=== PATIENT | male | born 1955 | race Caucasian/White ===

== ENCOUNTER 2017-08-22 14:17 | Emergency (ER) | payer OTHER ==
[~2017-08-22] VITALS: Ht 175.3 cm; Wt 78.0 kg
[~2017-08-22 14:17] MED LIST changes: -ASPI81TA94 PO
--- NOTE | 2017-08-22 14:25 | ER Report ---
History and Physical Time Seen By MD: 14:23 HPI/ROS CHIEF COMPLAINT: Shortness of breath HISTORY OF PRESENT ILLNESS: 62-year-old male patient presents to emergency room with complaints shortness of breath. Patient states it started approximately 10: 00 this morning. Patient states he is not been doing well with his breathing for the past 2 months. States that he today is gotten worse. Patient does have a history of blood clots. He is noticed these had some pain for last couple days behind his right leg as well as in his right medial thigh. He states that he is also having some chest pain. He he denies any nausea, vomiting or diarrhea. Patient states he does have some discomfort that radiates down the left arm. He has not taken any medication for this. He did take a baby aspirin this morning. REVIEW OF SYSTEMS: Respiratory: As noted above. Cardiovascular: As noted above. Gastrointestinal: No vomiting, no abdominal pain. Musculoskeletal: No back pain. Allergies: Coded Allergies: No Known Allergies (Verified Allergy, Mild, 08/22/17) Home Meds Reported Medications Aspirin (ASPIRIN) 81 Mg Tab.chew, 81 MG PO QDAY, TAB.CHEW 08/22/17 Norwood-3 Fatty Acids (OMEGA-3) 100 Mg Tab.chew, 350 MG PO BID, TAB.CHEW 03/24/17 Cholecalciferol (Vitamin D3) (VITAMIN D3) 1,000 Unit Tablet, 1000 UNIT PO DAILY , TAB 03/24/17 Gluc/Ronnell-Msm#1/C/Pardeep/Lawson/Bor (OSTEO BI-FLEX CAPLET) 1 Each Tablet, 1 EACH PO DAILY 03/24/17 Ubidecarenone (COQ-10) 100 Mg Capsule, 100 MG PO BID, CAPSULE 03/24/17 Discontinued Reported Medications Prasterone (Dhea) (DHEA) 50 Mg Capsule, 50 MG PO BID, CAPSULE 03/24/17 Jeremy Extract (JEREMY) 500 Mg Capsule, 500 MG PO BID, CAPSULE 03/24/17 Pregabalin (LYRICA) 75 Mg Capsule, 75 MG PO BID, CAPSULE 03/24/17 Tramadol Hcl (TRAMADOL HCL) 100 Mg Tab.er.24h, 100 MG PO TID, TAB 03/24/17 Hydrocodone Bit/Acetaminophen (HYDROCODON-ACETAMINOPHEN 5-325) 1 Each Tablet, 10 -325 EACH PO TID, TAB 03/24/17 Discontinued Scripts Ketorolac Tromethamine (KETOROLAC TROMETHAMINE) 10 Mg Tab, 10 MG PO Q6H, #8 TAB Prov:JAMIL CULP MD 03/25/17 Past Medical/Surgical History Patient has a past medical history of obstructive sleep apnea, asthma, pneumonia , pulmonary emboli, reflux, arthritis, fractures, back pain, atopic dermatitis, alcohol use. Patient has surgical history of tonsillectomy, back surgery, leg surgery, knee surgery, colonoscopy, hernia repair. Reviewed Nurses Notes: Yes Hx Smoking: No (CHEWS 1 BAG EVERY 2 DAYS, SINCE AGE 52) Smoking Status: Never Smoker Exposure to Second Hand Smoke?: Yes Hx Alcohol Use: Yes Constitutional Vital Sign - Last 24 Hours 08/22/17 08/22/17 08/22/17 08/22/17 14:23 14:30 14:47 14:48 Temp 97.4 Pulse 128 123 Resp 22 57 B/P (MAP) 148/108 97/81 (86) Pulse Ox 81 95 O2 Delivery Room Air O2 Flow Rate 15.0 08/22/17 08/22/17 08/22/17 08/22/17 15:00 15:41 15:47 15:52 Pulse 117 118 Resp 17 24 B/P (MAP) 103/90 (94) 103/82 (89) Pulse Ox 97 95 08/22/17 08/22/17 15:57 16:30 Pulse 116 Resp 15 B/P (MAP) 112/93 (99) Pulse Ox 95 Intake and Output 08/22/17 08/22/17 08/23/17 15:01 23:01 07:01 Intake Total 1012 ml Balance 1012 ml Physical Exam General Appearance: The patient is alert, has no immediate need for airway protection and no current signs of toxicity. Respiratory: Chest is non tender, lungs are clear to auscultation. Cardiac: regular rate and rhythm Gastrointestinal: Abdomen is soft and non tender, no masses, bowel sounds normal. Musculoskeletal: Neck: Neck is supple and non tender. Extremities have full range of motion and are non tender. Skin: No rashes or lesions. DIFFERENTIAL DIAGNOSIS: After history and physical exam differential diagnosis was considered for shortness of breath including but not limited to pulmonary infectious process, COPD, asthma, pulmonary embolus and congestive heart failure. Medical Decision Making Data Points Result Diagram: 08/22/17 1430 08/22/17 1430 Laboratory Hematology Test 08/22/17 14:30 Red Blood Count 5.58 M/uL (4.00-5.60) Mean Corpuscular Volume 92.6 fL (80.0-96.0) Mean Corpuscular Hemoglobin 31.4 pg (26.0-33.0) Mean Corpuscular Hemoglobin Concent 33.9 g/dL (32.0-36.0) Red Cell Distribution Width 13.0 % (11.5-14.5) Mean Platelet Volume 7.4 fL (7.2-11.1) Neutrophils (%) (Auto) 68.3 % (39.4-72.5) Lymphocytes (%) (Auto) 18.9 % (17.6-49.6) Monocytes (%) (Auto) 11.0 % (4.1-12.4) Eosinophils (%) (Auto) 1.3 % (0.4-6.7) Basophils (%) (Auto) 0.5 % (0.3-1.4) Nucleated RBC Relative Count (auto) 0.0 /100WBC Neutrophils # (Auto) 6.7 K/uL (2.0-7.4) Lymphocytes # (Auto) 1.8 K/uL (1.3-3.6) Monocytes # (Auto) 1.1 K/uL (0.3-1.0) Eosinophils # (Auto) 0.1 K/uL (0.0-0.5) Basophils # (Auto) 0.1 K/uL (0.0-0.1) Nucleated RBC Absolute Count (auto) 0.00 K/uL Prothrombin Time 13.9 seconds (12.0-14.4) Prothromb Time International Ratio 1.07 Activated Partial Thromboplast Time 31 seconds (23-35) D-Dimer Quantitative (PE/DVT) > 20.00 ug/ml (0-0.50) Sodium Level 136 mmol/L (137-145) Potassium Level 4.2 mmol/L (3.5-5.0) Chloride Level 101 mmol/L (98-107) Carbon Dioxide Level 23 mmol/L (22-30) Blood Urea Nitrogen 13 mg/dl (9-21) Creatinine 1.20 mg/dl (0.66-1.25) Glomerular Filtration Rate Calc > 60.0 Random Glucose 113 mg/dl (75-110) Calcium Level 9.7 mg/dl (8.4-10.2) Total Bilirubin 1.1 mg/dl (0.2-1.3) Aspartate Amino Transf (AST/SGOT) 40 U/L (0-35) Alanine Aminotransferase (ALT/SGPT) 33 U/L (0-56) Alkaline Phosphatase 121 U/L (0-126) Troponin I 1.640 ng/ml B-Type Natriuretic Peptide 44 pg/ml (0-100) Total Protein 8.7 gm/dl (6.3-8.2) Albumin 4.0 g/dl (3.5-5.0) Chemistry Test 08/22/17 14:30 White Blood Count 9.8 k/uL (4.5-11.0) Red Blood Count 5.58 M/uL (4.00-5.60) Hemoglobin 17.5 g/dL (14.0-18.0) Hematocrit 51.7 % (42.0-52.0) Mean Corpuscular Volume 92.6 fL (80.0-96.0) Mean Corpuscular Hemoglobin 31.4 pg (26.0-33.0) Mean Corpuscular Hemoglobin Concent 33.9 g/dL (32.0-36.0) Red Cell Distribution Width 13.0 % (11.5-14.5) Platelet Count 368 K/uL (150-450) Mean Platelet Volume 7.4 fL (7.2-11.1) Neutrophils (%) (Auto) 68.3 % (39.4-72.5) Lymphocytes (%) (Auto) 18.9 % (17.6-49.6) Monocytes (%) (Auto) 11.0 % (4.1-12.4) Eosinophils (%) (Auto) 1.3 % (0.4-6.7) Basophils (%) (Auto) 0.5 % (0.3-1.4) Nucleated RBC Relative Count (auto) 0.0 /100WBC Neutrophils # (Auto) 6.7 K/uL (2.0-7.4) Lymphocytes # (Auto) 1.8 K/uL (1.3-3.6) Monocytes # (Auto) 1.1 K/uL (0.3-1.0) Eosinophils # (Auto) 0.1 K/uL (0.0-0.5) Basophils # (Auto) 0.1 K/uL (0.0-0.1) Nucleated RBC Absolute Count (auto) 0.00 K/uL Prothrombin Time 13.9 seconds (12.0-14.4) Prothromb Time International Ratio 1.07 Activated Partial Thromboplast Time 31 seconds (23-35) D-Dimer Quantitative (PE/DVT) > 20.00 ug/ml (0-0.50) Glomerular Filtration Rate Calc > 60.0 Calcium Level 9.7 mg/dl (8.4-10.2) Total Bilirubin 1.1 mg/dl (0.2-1.3) Aspartate Amino Transf (AST/SGOT) 40 U/L (0-35) Alanine Aminotransferase (ALT/SGPT) 33 U/L (0-56) Alkaline Phosphatase 121 U/L (0-126) Troponin I 1.640 ng/ml B-Type Natriuretic Peptide 44 pg/ml (0-100) Total Protein 8.7 gm/dl (6.3-8.2) Albumin 4.0 g/dl (3.5-5.0) Coagulation Test 08/22/17 14:30 Prothrombin Time 13.9 seconds Prothromb Time International Ratio 1.07 Activated Partial Thromboplast Time 31 seconds D-Dimer Quantitative (PE/DVT) > 20.00 ug/ml EKG/Imaging EKG Interpretation 12 lead EKG: Rhythm: Sinus tachycardia with ventricular rate of 123 bpm Sebastian: Right axis deviation QRS: normal ST segments: T wave abnormality Imaging CT angiogram chest with contrast Indication: Short of breath. Comparison: None available. Technique: Axial CT images are obtained through the chest after administration of 100 mL Isovue 370 IV contrast. Reformatted coronal and sagittal images were reviewed as well as coronal MIP images. One of the following dose optimization techniques was utilized in the performance of this exam: automated exposure control; adjustment of the mA and/ or kV according to the patient's size; or use of an iterative reconstruction technique. Specific details can be referenced in the facility's radiology CT exam operational policy. FINDINGS: There is significant bilateral pulmonary emboli's starting from the distal right and left main pulmonary artery and extending into the branches of the right upper, middle and lower lobe pulmonary arteries and the left lingula and lower lobe pulmonary arteries. These are in the segmental and subsegmental distribution. The heart is normal size without pericardial effusion. The right ventricle measures 6 cm and the left ventricle measures 2.4 cm. Aorta shows no aneurysm or dissection. The mediastinum and hilar show no enlarged lymph nodes or abnormal density. Lungs show no consolidation, pleural effusion or pneumothorax. There is a posterior pleural-based 6 mm nodule in the left lower lobe on image #58. No other discrete nodules or focal interstitial opacities. Airways are clear. Bony structures show no acute fracture or discrete lesions. Mild degenerative changes spine. Chest wall shows no enlarged axillary lymph nodes or masses. Limited views of the upper abdomen are unremarkable. IMPRESSION: 1. Significant bilateral pulmonary emboli extending from the distal main left and right pulmonary arteries into the segmental and subsegmental branches diffusely. There appears to be right heart strain present. 2. Lungs show no focal infiltrate. 3. 6 mm left lower lobe pleural-based nodule. This too small characterize. Suggest follow-up per Fleischner guidelines described below. I called report to KEVIN MEJIA at 08/22/2017 3:53 PM. FLEISCHNER SOCIETY FOLLOW-UP GUIDELINES FOR NEWLY DETECTED INCIDENTAL NODULES IN PERSONS 35 YEARS OF AGE OR OLDER. *THESE RECOMMENDATIONS DO NOT APPLY TO LUNG CANCER SCREENING, PATIENTS WITH IMMUNOSUPPRESSION , OR PATIENTS WITH KNOWN PRIMARY MALIGNANCY. SOLITARY SOLID NODULES If nodule size is less than 6 mm: Low risk patient - no follow up needed High risk patient - Optional CT at 12 months. If nodule size is 6-8 mm: Low risk patient - follow up CT at 6-12 months, then consider CT at 18-24 months if no change. High risk patient - follow up CT at 6-12 months, then CT at 18-24 months if no change. If nodule size is greater than 8 mm: Low risk patient - Consider CT at 3, 9 months, and 24 months; or PET/CT, or tissue sampling, or a combination thereof. High risk patient - Consider CT at 3, 9 months, and 24 months; or PET/CT, or tissue sampling, or a combination thereof. LOW RISK PATIENT: Minimal or absent history of tobacco use and of other known risk factors. HIGH RISK PATIENT: Tobacco use, family history of lung cancer, upper pulmonary lobe location of nodule, presence of emphysema, pulmonary fibrosis, older age. Nathaniel H, Li DP, Itzel ROBINS, et al. Guidelines for Management of Incidental Pulmonary Nodules Detected on CT Images: From the Fleischner Society 2017. Radiology. Report Dictated By: Chay Antony at 08/22/2017 3:45 PM Report E-Signed By: Chay Antony at 08/22/2017 3:54 PM ED Course/Re-evaluation ED Course Patient was admitted to exam room, history and physical were obtained. Differential diagnoses were considered. On exam patient is working hard to breathe. He does have a room air sat of 84%, heart rate is 134. Patient was placed on oxygen, bruit the oxygen up to 93% with 10 L on oxygen mask. IV was started, CBC, CMP, troponin, EKG, d-dimer, PT and PTT were done. Patient had a normal white count, CMP was unremarkable. Troponin was elevated at 1.64. EKG showed a sinus tachycardia with right axis deviation, T-wave abnormality. As soon as I saw the troponin I did order the pony angiogram. He was my thought that it was likely heartstring that was causing the elevated troponin. I spoke with Dr. Valle, hospitals at [facility], and discussed the case. We decided to wait until we had the CT scan to make a plan. That was done and I reviewed the images. I was able to visualize large clot burden in the right and left pulmonary arteries. I did call and speak with Dr. Valle, hospitalist at [facility], who agreed to accept the patient for admission. We will go ahead and start the patient on a heparin drip here. We will also go ahead and fly the patient due to the significant clot burden. I discussed with patient who verbalized understanding and agreement. Decision to Disposition Date: Aug 22, 2017 Decision to Disposition Time: 15:56 Depart Departure Latest Vital Signs Vital Signs Date Time Temp Pulse Resp B/P (MAP) Pulse Ox O2 Delivery O2 Flow Rate FiO2 08/22/17 16:30 112/93 (99) 08/22/17 15:57 116 15 95 08/22/17 14:30 15.0 08/22/17 14:23 97.4 Room Air Impression: Primary Impression: Pulmonary emboli Additional Impression: Elevated troponin Condition: Condition Unchanged Disposition: XFER TO [facility] Problem Qualifiers Primary Impression: Pulmonary emboli Pulmonary embolism type: other Chronicity: acute Acute cor pulmonale presence: with acute cor pulmonale Qualified Codes: I26.09 - Other pulmonary embolism with acute cor pulmonale KEVIN MEJIA Aug 22, 2017 14:25
[2017-08-22] MEDS ORDERED: NS(*) 0.9% 1000 ML BAG 1,000 ML IV ONE (14:36)
[2017-08-22] MEDS ORDERED: ASPI81TA94 PO (14:37)
[2017-08-22] MEDS ORDERED: methylPREDNIS SUCC 125 MG/2ML IVP ONE (14:40)
[2017-08-22 14:44] LABS: PLATELET COUNT, AUTOMATED 368 K/uL (150-450)
--- NOTE | 2017-08-22 14:46 | EKG ---
FACILITY: [facility] - [place] PATIENT NAME: NERISSA TYLER : [id number] MR: [id number] V: [id number] EXAM DATE: ORDERING PHYSICIAN: KEVIN MEJIA TECHNOLOGIST: Khalif Hamilton Reason : Blood Pressure : / mmHG Vent. Rate : 123 BPM Atrial Rate : 123 BPM P-R Int : 146 ms QRS Dur : 084 ms QT Int : 324 ms P-R-T Axes : 067 118 -14 degrees QTc Int : 463 ms Sinus tachycardia Right axis deviation Abnormal ECG Artifact in multiple leads makes interpretation dfiicult - recommend repeat EKG Confirmed by TI HERNANDES ([id number]) on 08/23/2017 6:05:07 AM Referred By: Confirmed By:TI HERNANDES
[2017-08-22] MEDS ORDERED: NS 0.9% 50 ML VIAL 100 ML ONE (15:36)
[2017-08-22] MEDS ORDERED: IOPAMIDOL 76% 100 ML INFUS BTL 100 ML ONE (15:36)
[2017-08-22] MEDS ORDERED: HEPARIN* SOD/D5W 25000 U/500ML 500 ML IV ONE (15:38)
[2017-08-22] MEDS ORDERED: HEPARIN (PORC) 5000 UN/ML VIAL IVP ONE (15:40)
[2017-08-22 15:58] LABS: INR 1.07
--- NOTE | 2017-08-22 15:59 | RADIOLOGY IMAGING REPORT ---
FACILITY: [facility] - [place] PATIENT NAME: Tima Romero : 1955 MR: [id number] V: [id number] EXAM DATE: ORDERING PHYSICIAN: KEVIN MEJIA TECHNOLOGIST: Location: [facility] - [place] Patient: Tima Romero : 1955 Visit/Account:[id number] Date of Sevice: 08/22/2017 CT angiogram chest with contrast Indication: Short of breath. Comparison: None available. Technique: Axial CT images are obtained through the chest after administration of 100 mL Isovue 370 I V contrast. Reformatted coronal and sagittal images were reviewed as well as coronal MIP images. One of the following dose optimization techniques was utilized in the performance of this exam: auto mated exposure control; adjustment of the mA and/or kV according to the patient's size; or use of an iterative reconstruction technique. Specific details can be referenced in the facility's radiology C T exam operational policy. FINDINGS: There is significant bilateral pulmonary emboli's starting from the distal right and left main pulmon abdullahi artery and extending into the branches of the right upper, middle and lower lobe pulmonary arteri es and the left lingula and lower lobe pulmonary arteries. These are in the segmental and subsegmenta l distribution. The heart is normal size without pericardial effusion. The right ventricle measures 6 cm and the left ventricle measures 2.4 cm. Aorta shows no aneurysm or dissection. The mediastinum and hilar show no enlarged lymph nodes or abnormal density. Lungs show no consolidation, pleural effusion or pneumothorax. There is a posterior pleural-based 6 m m nodule in the left lower lobe on image #58. No other discrete nodules or focal interstitial opaciti es. Airways are clear. Bony structures show no acute fracture or discrete lesions. Mild degenerative changes spine. Chest wa ll shows no enlarged axillary lymph nodes or masses. Limited views of the upper abdomen are unremarkable. IMPRESSION: 1. Significant bilateral pulmonary emboli extending from the distal main left and right pulmonary art eries into the segmental and subsegmental branches diffusely. There appears to be right heart strain present. 2. Lungs show no focal infiltrate. 3. 6 mm left lower lobe pleural-based nodule. This too small characterize. Suggest follow-up per Fleanil tsang guidelines described below. I called report to KEVIN MEJIA at 08/22/2017 3:53 PM. FLEISCHNER SOCIETY FOLLOW-UP GUIDELINES FOR NEWLY DETECTED INCIDENTAL NODULES IN PERSONS 35 YEARS OF AGE OR OLDER. *THESE RECOMMENDATIONS DO NOT APPLY TO LUNG CANCER SCREENING, PATIENTS WITH IMMUNOSUPPRESSION , OR PA TIENTS WITH KNOWN PRIMARY MALIGNANCY. SOLITARY SOLID NODULES If nodule size is less than 6 mm: Low risk patient - no follow up needed High risk patient - Optional CT at 12 months. If nodule size is 6-8 mm: Low risk patient - follow up CT at 6-12 months, then consider CT at 18-24 months if no change. High risk patient - follow up CT at 6-12 months, then CT at 18-24 months if no change. If nodule size is greater than 8 mm: Low risk patient - Consider CT at 3, 9 months, and 24 months; or PET/CT, or tissue sampling, or a com bination thereof. High risk patient - Consider CT at 3, 9 months, and 24 months; or PET/CT, or tissue sampling, or a co mbination thereof. LOW RISK PATIENT: Minimal or absent history of tobacco use and of other known risk factors. HIGH RISK PATIENT: Tobacco use, family history of lung cancer, upper pulmonary lobe location of nodul e, presence of emphysema, pulmonary fibrosis, older age. Nathaniel H, Li DP, Harrisono JM, et al. Guidelines for Management of Incidental Pulmonary Nodules Dete cted on CT Images: From the Fleischner Society 2017. Radiology. Report Dictated By: Chay Antony at 08/22/2017 3:45 PM Report E-Signed By: Chay Antony at 08/22/2017 3:54 PM WSN:[id number]
[2017-08-22 16:30] VITALS: BP 112/93
[2017-08-22] MEDS ORDERED: LORazepam 2 MG/ML VIAL IVP ONE (16:30)
== END 2017-08-22 17:00 | disposition short-term general hospital (02) ==
LOC: ER 14:26
DX: I26.09 Other pulmonary embolism with acute cor pulmonale (principal); R79.89 Other specified abnormal findings of blood chemistry
CPT/HCPCS: 71275; 83880; 84484; 85025; 85379; 85610; 85730; 93005; 96361; 96365; 96375; 99285; J1644; J2060; J2930; J7030; J7050; Q9967; 82040; 82247; 82310; 82374; 82435; 82565; 82947; 84075; 84132; 84155; 84295; 84450; 84460; 84520

== ENCOUNTER → 2017-08-22 | Outpatient (REF) ==
[~2017-08-22] MED LIST: ASPI81TA94 PO; CHOL10005 PO; CLON-298 PO; DEXA6TAB5 PO; DIA5 PO; GLUC1TAB44 PO; HYDR-3629 PO; HYDR-385 PO; HYDR-6016 PO; IBUP800T37 PO; INDO50CA92 PO; INDO75CA PO; KET10 PO; MACA500C2 PO; OMEG100T3 PO; OMEP-153 PO; ORP100 PO; OXYC-869 PO; OXYC10TA67 PO; PANT40TA63 PO; PRAS50CA3 PO; PREG75CA60 PO; QUE25 PO; TRAM-420 PO; TRAM100T22 PO; UBID100C48 PO; VENL150C3 PO
== END ==
LOC: AMB 16:35
PROVIDERS: ATTEND Nurse Practitioner
DX: Z02.9 Encounter for administrative examinations, unspecified (principal)

== ENCOUNTER → 2018-02-09 | Outpatient (REF) | payer OTHER ==
[~2018-02-09] MED LIST changes: +ASPI81TA94 PO; -TRAM100T22 PO; +TRAM100T8 PO
== END ==
LOC: ZZSENDIN 12:00
PROVIDERS: ATTEND Urology
DX: C61 Malignant neoplasm of prostate (principal)
CPT/HCPCS: 88305; 88344

== ENCOUNTER 2018-02-18 13:46 | Outpatient (RCR) | payer OTHER ==
[~2018-02-18 13:46] MED LIST changes: -CLON-298 PO; +CLON-331 PO; +INDO-23 PO; -INDO50CA92 PO
[2018-02-18 14:02] LABS: PLATELET COUNT, AUTOMATED 350 K/uL (150-450)
[2018-02-23] MEDS ORDERED: IOPAMIDOL 76% 100 ML INFUS BTL 100 ML ONE (07:54)
--- NOTE | 2018-02-23 08:24 | RADIOLOGY IMAGING REPORT ---
FACILITY: [facility] PATIENT NAME: Tima Romero : 1955 MR: [id number] V: [id number] EXAM DATE: ORDERING PHYSICIAN: DOC WASHINGTON TECHNOLOGIST: Location: [facility] - [place] Patient: Tima Romero : 1955 Visit/Account:[id number] Date of Sevice: 02/23/2018 Chest 2 views: HISTORY: Prostate cancer, nonsmoker. Sports-induced asthma. COMPARISON: There are no prior chest x-rays available for comparison. Correlation made with chest CT 08/22/2017 FINDINGS: Frontal and lateral chest: Heart size is within normal limits. Central pulmonary arteries are prominent, similar to prior CT scan. Query symptoms of pulmonary hypertension. There is no infi ltrate or pleural effusion. Peripheral pulmonary vasculature appears normal. Minimal degenerative changes are present in the thoracic spine. IMPRESSION: Prominence of central pulmonary arteries, query symptoms of pulmonary hypertension. Ther e is no evidence of acute cardiopulmonary abnormality. Report Dictated By: Alecia Agrawal MD at 02/23/2018 8:14 AM Report E-Signed By: Alecia Agrawal MD at 02/23/2018 8:19 AM WSN:[id number]
--- NOTE | 2018-02-23 12:13 | RADIOLOGY IMAGING REPORT ---
FACILITY: [facility] - [place] PATIENT NAME: Tima Romero : 1955 MR: [id number] V: [id number] EXAM DATE: ORDERING PHYSICIAN: DOC WASHINGTON TECHNOLOGIST: Location: [facility] Patient: Tima Romero : 1955 Visit/Account:[id number] Date of Sevice: 02/23/2018 EXAMINATION: CT Abdomen W/O Contrast CT Abdomen W/ Contrast CT Pelvis W/O Contrast CT Pelvis W/ Contrast 02/23/2018 8:00 AM HISTORY: Prostate cancer TECHNIQUE: Spiral scans were obtained through the abdomen and pelvis before and during injection of nonionic iodinated intravenous contrast. Contrast: 80 mL of IV Isovue 370. One of the following dose optimization techniques was utilized in the performance of this exam: Autom ated exposure control; adjustment of the mA and/or kV according to the patient's size; or use of an i terative reconstruction technique. Specific details can be referenced in the facility's radiology C T exam operational policy. COMPARISON STUDIES: Scheduled bone scan today has not yet been completed. CT abdomen and pelvis 11/20/2013. FINDINGS: Liver / biliary: Indistinct hypoenhancing subcentimeter focus near the dome of the right lobe (image 25). This is harder to appreciate on the prior study without contrast but in retrospect I think pres ent and unchanged, presumably an incidental cyst or hemangioma no acute biliary finding. Pancreas: negative Spleen: negative Adrenal glands: negative Kidneys / retroperitoneum: negative Pelvic structures: Prostate is not substantially enlarged. No focal prostate mass evident by CT. Bladder contours are unremarkable. Bladder is mildly thick-walled but incompletely distended which may account for that. Bowel / peritoneum / mesenteries: negative Vessels: Aortoiliac atherosclerosis with tortuosity. No aneurysm. Indwelling IVC filter. No visual ized caval thrombus. Musculoskeletal / Body wall: Adjacent indeterminate small sclerotic foci within the left iliac bone. No clear bony metastatic pattern. Degenerative changes in the spine. Lymph node assessment: negative Lower chest: negative IMPRESSION: No definite metastatic disease in the abdomen or pelvis. Indeterminate small sclerotic areas in the left iliac bone. Bone scan is pending. Report Dictated By: Jose Manuel Zuniga MD at 02/23/2018 11:33 AM Report E-Signed By: Jose Manuel Zuniga MD at 02/23/2018 12:09 PM WSN:[email or web address]
--- NOTE | 2018-02-23 14:33 | RADIOLOGY IMAGING REPORT ---
FACILITY: [facility] PATIENT NAME: Tima Romero : 1955 MR: [id number] V: [id number] EXAM DATE: ORDERING PHYSICIAN: DOC WASHINGTON TECHNOLOGIST: Location: [facility] [place] Patient: Tima Romero : 1955 Visit/Account:[id number] Date of Sevice: 02/23/2018 Whole body bone scan: HISTORY: Prostate cancer. COMPARISON: There are no prior bone scan studies available for comparison. Correlation made with CT scan 02/23/2018. Correlation made with cervical spine films 08/23/2009. FINDINGS: Whole body bone scan was performed following the IV administration of 26.4 mCi of technetiu m 99m MDP. There is homogeneous uptake of activity in the skull, thoracic and lumbar spine. There i s mild increased activity overlying the anterior cervical spine inferiorly which may be secondary to degenerative disease. Sclerotic focus in the left iliac bone on CT scan does not have a bone scan correlate. There is homo geneous uptake of activity in the pelvis. There4 is no abnormal uptake in the ribs. Mild increased activity is present at the sternoclavicular joints bilaterally, likely degenerative. There is a focus of intense activity at the tip of the xip hoid process. A CT scan is noted that the tip of the xiphoid is prominent and oriented anteriorly an d this focus of activity may reflect this. There is mild increased activity in both shoulders, right wrist, both knees, feet and ankles and both first MTP joints, sites commonly associated with degener ative disease. IMPRESSION: 1. No bone scan findings to suggest bony metastatic disease. Sclerotic focus in the left iliac bone on CT scan does not have a bone scan correlate. 2. Activity in the tip of the xiphoid likely related to orientation of this structure. 3. Foci of increased activity at sites commonly associated with degenerative disease. Report Dictated By: Alecia Agrawal MD at 02/23/2018 2:15 PM Report E-Signed By: Alecia Agrawal MD at 02/23/2018 2:29 PM WSN:[email or web address]
== END 2018-02-23 18:00 | disposition home or self-care (01) ==
LOC: CT 13:46
PROVIDERS: ATTEND Urology
DX: C61 Malignant neoplasm of prostate (principal)
CPT/HCPCS: 36415; 71046; 74178; 78306; 82248; 85025; A9503; Q9967; 82040; 82247; 82310; 82374; 82435; 82565; 82947; 84075; 84132; 84155; 84295; 84450; 84460; 84520

== ENCOUNTER 2018-03-15 08:49 | Outpatient (RCR) | payer OTHER ==
[2018-03-16] MEDS ORDERED: RIVA20TA PO (10:06)
[2018-03-16] MEDS ORDERED: ALB18R INH (10:06)
== END 2018-04-15 09:57 | disposition home or self-care (01) ==
LOC: RAON 08:49
PROVIDERS: ATTEND Radiology Radiation Oncology
DX: C61 Malignant neoplasm of prostate (principal)
CPT/HCPCS: 99203

== ENCOUNTER 2018-07-12 10:27 | Outpatient (RCR) | payer OTHER ==
--- NOTE | 2018-05-02 16:06 | Oncology Progress Note ---
History of Present Illness Evaluation Evaluation Date: May 02, 2018 Evaluation Time: 15:00 Accompanied by Accompanied by: Gissel Last seen by : Marv 03/15/18 Chief Complaint Chief Complaint Prostate cancer, presenting with highest Clearwater score 3+4=7 in 3/12 cores and PSA of 9.0, status post biopsy Oncology History Oncology History 03/15/2018 Mr. Romero is a 63 year old gentleman who was noted to have a rising PSA, up to 9.0 on 01/03/2018. Patient had a prostate biopsy on 02/09/2018 under the direction of Dr. Cheng. Prostate volume was noted to be 41 cc. Pathology showed Rosa 3+4=7 disease in 30% of right lateral base core; Rosa 6 disease in 5% of right middle core and Clearwater 6 in 10% of the right apex core. Patient has previously discussed his treatment options with Dr. Cheng. He presents today for radiation oncology consultation. Patient's AUA is 2. No bowel issues Treatment Treatment Treatment Plan Options Management options for favorable intermediate risk prostate cancer and NCCN guidelines were reviewed. include active surveillance, prostatectomy, or external beam radiotherapy to the pelvis +/- prostate brachytherapy. Plan 4500 cGy plus 900 cGy HPI HPI Mr. Romero is a 63 year old gentleman who has Prostate Cancer Rosa 3+4=7 biopsy proven in 02/09/2018. Disease in 30% of right lateral base core; Clearwater 6 disease in 5% of right middle core and Clearwater 6 in 10% of the right apex core. Was noted to have a rising PSA, up to 9.0 on 01/03/2018.Patient has been under the direction of Dr. Cheng. Prostate volume was noted to be 41 cc. Patient has previously discussed his treatment options with Dr. Cheng. He presents to [facility] today accompany by his Ms. Chauhan, for radiation oncology follow up, patient was last seen By Dr. Fair Rad/Onc on March 15 2018, His [facility] was [facility]. He is AAOX4. Hemodynamically stable, afebrile and in no acute distress. He denies any cardiac type chest pain, no abdominal pain, no fevers at home, no night sweats, no chills, no spontaneous bleeding, no nausea vomiting diarrhea, no constipation, no dark stools .Oral intake appetite no weight loss. Reports cervical spine , lower back pain ongoing, no changes in bowel or bladder pattern, no PND, no dizziness, or headaches nor blurry vision. Keeps active and on the go. Patient's AUA is 2. Significant PMHx of; Pulmonary embolism; Chronic back and cervical pain. Living Conditions Lives with of 40 years , strong support system. 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 Family History; Mother 83 years old alive, history of bladder cancer, and NOn Hodkins Lymphoma, Father at 82 years old from liver cancer, Prostate cancer Brother one younger, no health issues besides a heart valve problem, chronic No children, to Gissel for 40years Alcohol History Drinks 5-6 beers/bud light per Day. Educated to cut back Chews tobacco daily. tobacco cessation education provided Recreational Drug History CBD oil drops for neck pain Hx Smoking: No (CHEWS 1 BAG EVERY 2 DAYS, SINCE AGE 52) Smoking Status: Never Smoker Exposure to Second Hand Smoke?: Yes Allergies & Medications Allergies: Coded Allergies: No Known Allergies (Verified Allergy, Mild, 08/22/17) Home Meds Reported Medications Albuterol Sulfate (VENTOLIN HFA) 18 Gm Inh, 1-2 PUFF INH 3-4XD PRN for WHEEZING, INH 03/16/18 Rivaroxaban 20 Mg (XARELTO 20 MG) 20 Mg Tablet, 20 MG PO DAILY, TAB 03/16/18 Aspirin (ASPIRIN) 81 Mg Tab.chew, 81 MG PO QDAY, TAB.CHEW 08/22/17 [place]-3 Fatty Acids (OMEGA-3) 100 Mg Tab.chew, 350 MG PO BID, TAB.CHEW 03/24/17 Cholecalciferol (Vitamin D3) (VITAMIN D3) 1,000 Unit Tablet, 1000 UNIT PO DAILY, TAB 03/24/17 Gluc/Ronnell-Msm#1/C/Pardeep/Lawson/Bor (OSTEO BI-FLEX CAPLET) 1 Each Tablet, 1 EACH PO DAILY 03/24/17 Ubidecarenone (COQ-10) 100 Mg Capsule, 100 MG PO BID, CAPSULE 03/24/17 Review of Systems Constitution: Denies Appetite/Weight Change, Denies Fever/Chills/Sweating, Denies Recent Infection, Denies Other HEENT: No EARS: Tinnitus, No NOSE: Nasal Discharge, No THROAT: Sore Throat, No EYES: Dipolpia, No EARS: Hearing Problems, No NOSE: Epistaxis, No THROAT: Mouth Ulcers, No EYES: Vision Change, No OTHER Respiratory: No Cough, No Expectoration, No Hemoptysis, No Shortness of Breath, No OTHER Cardiovascular: No Chest Pain, No Orthopnea, No Edema, No Palpitations, No OTHER Gastrointestinal: No Nausea, No Vomitting, No Diarrehea, No Constipation, No Heart Burn, No Swallowing Difficulties, No Abdominal Pain, No Other Gentiourinary: No Hematuria, No Dysuria, No Nocturia; Other (weak stream) Musculoskeletal: Other Hematological: No Bleeding, No Weakness, No Enlarged Lyph Nodes, No Bruising, No Fatigue, No Other Skin: No Skin Rash, No Lumps, No Erythema, No Dry Skin, No Moist Skin, No Other Psychiatric: No Anxiety, No Depression, No Other Vital Signs Vital Signs Temperature: Pulse: BP Systolic: BP Diastolic: Respiratory Rate: O2 SAT: O2 Delivery: Height (feet) Height (inches) Weight lb: 172 Weight oz: Weight Kg (Abilio): Pain: 5 ECOG-0 Physical Exam General: Looks Stable, Well Developed, Well Nourished HEENT: HEAD:Atraumatic; No EYES: Conjuctivitis, No EYES: Icterus, No MOUTH: Mucocitis, No MOUTH: Oral Thrush, No SINUS: Tenderness to Palpation, No Other Neck: Supple; No Cervical Lymphadenopathy, No Subclavicular Lymphadopathy, No Thyromegaly, No Other Lungs: Clear to Auscultation Heart: Regular Rate and Rhythm; No Gallops, No Murmurs, No Clicks, No Rubs, No Other Abdomen: Soft and Nontender; No Hepatosplenomegaly, No Masses, No Other Extremities: No Cyanosis, No Clubbing, No Edema, No Other Lymphatics: No Peripheral Lymphadenopathy, No Other Psychiatric: Mood appears normal, Affect appears normal Skin: No Skin Rashes, No Bruising, No Purpura, No Moist Desquamation, No Dry Desquamation, No Errythema, No Mild Errythema, No Moderate Errythema, No Severe Errythema, No Induration, No Other Breast: No Masses Assessment and Plan Assessment and Plan Mr. Romero is a 63 year old gentleman who has Prostate Cancer Clearwater 3+4=7 b iopsy proven in 02/09/2018. Disease in 30% of right lateral base core; Clearwater 6 disease in 5% of right middle core and Rosa 6 in 10% of the right apex core. Was noted to have a rising PSA, up to 9.0 on 01/03/2018.Patient has been under the direction of Dr. Cheng. Prostate volume was noted to be 41 cc. Patient has previously discussed his treatment options with Dr. Cheng. He presents today accompany by his Ms. Chauhan, for radiation oncology follow up, patient was last seen By Dr. Fair Rad/Onc on March 15 2018, His treatment was delayed due [facility]. He is AAOX4. Hemodynamically stable, afebrile and in no acute distress. He reports urine weak stream, denies leaking, no nocturia, no waking up at night to void, no night sweats, reports increase sensitivity to cold, he informs me his TSH is being checked at the OR, he also expressed preferring to get his labs drawn here at [facility] whenever possible. I informed him we could arrange that, patient and had additional questions for me, I believe that I answered them to the best of my knowledge. [facility]. 1. Prostate Cancer Rosa 3+4=7 biopsy proven in 02/09/2018. Disease in 30% of right lateral base core;SIM CT was done today 05/02/18 2. History of bilateral pulmonary embolism in 08/2017. on xarelto 20mg PO daily 3. IVC filter placement in after B/L PE.He is been followed by [place] and sewing pattern layout technician Dr. Luna at the OR. CHRONIC - Pain: Chronic, Cervical spine Pain and Lower back pain. He reports having suffered from physical work, Herniated disc. Plan is is to have 4cervical vertebra fused at the OR. Recently started on Hydrocodone 5mg Po BID, he also uses CBD oil PRN. - Tobacco (chewing) daily - Alcohol consumption- 5-6 [place] light beers per day - Hands and feet cold sensitivity. THS requested Plan - Review colonoscopy, prior initiate external beam XRT followed by brachytherapy. RN to request Colonoscopy from OR - Discuss Final treatment plan with Dr. Albert. - Bowel regimen Ppfx Rx and teaching provided today to and patient. Instructed to order picker OTC stool softeners and Imodium and use PRN. - Patient Instructed to decrease alcohol intake, patient reports drinking 5-6 beers er day as it produces an analgesic effects for his back and neck pain. He is also taking Hydrocodone 5mg Poo BID for the last week or so, this is helping. - Increase Physical activity and hydration, avoid caffeine, or stimulants after 6pm. - Will discuss with Dr. Albert in terms of approach with anticoagulation during seed implant - TSH and labs record to be requested from the OR - Education, patient and instructed to go to ER immediately and, or call Clinic if any Shortness of Breath, Temp >/=100.4, fevers, chills, cardiac type chest pain, bleeding, excessive bruising, headaches, blurry vision, dizziness, abdominal pain, difficulty swallowing, and pain unrelieved by medication, skin rashes, oozing wounds. TIME SPENT: 30 minutes 25 > minutes includes but not limited to discussion, counselling and co-ordination~ of care. Discussion with other health care providers, record review, review of lab work, diagnostic tests. Plan discussed extensively with patient. All the questions answered today. Thank you for the opportunity to be involved in the care of Tima Prater. Billing Level: Return visit 4 CC Copies to: OCHOA ALBERT MD ; VINAYAK LACKEY, ONC May 02, 2018 16:06
[2018-05-25 11:21] VITALS: BP 110/80
[2018-06-13 11:10] LABS: PLATELET COUNT, AUTOMATED 198 K/uL (150-450)
[~2018-07-12 10:27] MED LIST changes: +ALB18R INH; +ASPI-1471 PO; +CLOT15CR62 TP; +FLUC200T52 PO; +LEUPROLIDE ACETATE 45 MG SYRINGEKIT SC ONE; +METH4TAB66 PO; +RIVA20TA PO
[2018-07-12 10:33] VITALS: BP 101/76
== END 2018-07-28 ==
LOC: SPU 10:27
PROVIDERS: ATTEND Radiology Radiation Oncology
DX: Z51.0 Encounter for antineoplastic radiation therapy (principal); C61 Malignant neoplasm of prostate
CPT/HCPCS: 36415; 77280; 77290; 77295; 77300; 77301; 77334; 77336; 77338; 77385; 82040; 82247; 82310; 82374; 82435; 82565; 82947; 84075; 84132; 84153; 84155; 84295; 84403; 84450; 84460; 84520; 85025; 99212

== ENCOUNTER 2018-08-01 10:29 | Outpatient (RCR) | payer OTHER ==
[~2018-08-01 10:29] MED LIST changes: -LEUPROLIDE ACETATE 45 MG SYRINGEKIT SC ONE
== END 2018-08-01 16:17 | disposition home or self-care (01) ==
LOC: SPU 10:29
PROVIDERS: ATTEND Radiology Radiation Oncology
DX: Z51.0 Encounter for antineoplastic radiation therapy (principal); C61 Malignant neoplasm of prostate

== ENCOUNTER 2018-09-27 11:55 | Outpatient (RCR) | payer OTHER ==
[2018-09-20 10:57] VITALS: BP 121/84
[2018-09-27] MEDS ORDERED: TRAM100T8 PO (12:28)
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
== END 2018-10-03 11:49 | disposition home or self-care (01) ==
LOC: RAON 11:55
PROVIDERS: ATTEND Radiology Radiation Oncology
DX: Z51.0 Encounter for antineoplastic radiation therapy (principal); C61 Malignant neoplasm of prostate
CPT/HCPCS: 36415; 84153; 99212

== ENCOUNTER → 2018-11-03 | Outpatient (CLI) | payer OTHER | LOC: RESP 20:51 | PROVIDERS: ATTEND Family Medicine | DX: G47.33 Obstructive sleep apnea (adult) (pediatric) (principal); G47.37 Central sleep apnea in conditions classified elsewhere ==

== ENCOUNTER 2019-01-16 09:51 | Emergency (ER) | payer OTHER ==
--- NOTE | 2019-01-16 10:05 | ER Report ---
History and Physical Time Seen By MD: 10:04 Hx. of Stated Complaint: patient was running this morning and felt a pop in his left hip. patient is able to walk but reports pain HPI/ROS Was running, heard pop in proximal left hamstring at the buttocks. Then fell onto right knee. No head trauma. No other trauma. No with pain in left posterior proximal thigh at the buttocks region. Has limited gait, but able to ambulate with pain. On Xarelto for previous PE. Remainder of the 14 system rev: Yes Allergies: Coded Allergies: No Known Allergies (Verified Allergy, Mild, 08/22/17) Home Meds Reported Medications Tramadol Hcl (TRAMADOL HCL) 100 Mg Tab.er.24h, 100 MG PO QDAY, TAB 09/27/18 Methylprednisolone (METHYLPREDNISOLONE) 4 Mg Tab.ds.pk, 4 MG PO DIRECTED, TAB 05/20/18 Fluconazole (DIFLUCAN) 200 Mg Tablet, 200 MG PO QDAY for 14 days 05/20/18 Hydrocodone Bit/Acetaminophen (HYDROCODON-ACETAMINOPHEN 5-325) 1 Each Tablet, 1 EACH PO BID PRN for PAIN, TAB 05/09/18 Albuterol Sulfate (VENTOLIN HFA) 18 Gm Inh, 1-2 PUFF INH 3-4XD PRN for WHEEZING, INH 03/16/18 Rivaroxaban 20 Mg (XARELTO 20 MG) 20 Mg Tablet, 20 MG PO DAILY, TAB 03/16/18 [place]-3 Fatty Acids (OMEGA-3) 100 Mg Tab.chew, 350 MG PO BID, TAB.CHEW 03/24/17 Cholecalciferol (Vitamin D3) (VITAMIN D3) 1,000 Unit Tablet, 1000 UNIT PO DAILY, TAB 03/24/17 Gluc/Ronnell-Msm#1/C/Pardeep/Lawson/Bor (OSTEO BI-FLEX CAPLET) 1 Each Tablet, 1 EACH PO DAILY 03/24/17 Ubidecarenone (COQ-10) 100 Mg Capsule, 100 MG PO BID, CAPSULE 03/24/17 Reviewed Nurses Notes: Yes Old Medical Records Reviewed: Yes Hx Smoking: No (CHEWS 1 BAG EVERY 2 DAYS, SINCE AGE 52) Smoking Status: Never Smoker Exposure to Second Hand Smoke?: Yes Hx Substance Use Disorder: No Hx Alcohol Use: Yes Constitutional Vital Sign - Last 24 Hours 01/16/19 01/16/19 01/16/19 01/16/19 09:51 09:54 09:56 10:21 Temp 97.9 Pulse ??? 91 99 Resp 20 B/P (MAP) 113/85 (94) 113/85 Pulse Ox 91 88 O2 Delivery Room Air 01/16/19 01/16/19 01/16/19 01/16/19 10:58 11:21 13:00 13:30 Pulse 74 70 64 B/P (MAP) 103/76 (85) Pulse Ox 90 91 92 01/16/19 01/16/19 01/16/19 14:00 14:30 14:43 Pulse 76 78 B/P (MAP) 103/85 (91) Pulse Ox 91 92 Physical Exam General Appearance: The patient is alert, has no immediate need for airway p rotection and no current signs of toxicity. Head NCAT Eyes: Pupils equal and round no injection. Respiratory: Chest is non tender, lungs are clear to auscultation. Cardiac: regular rate and rhythm Gastrointestinal: Abdomen is soft and non tender, no masses, bowel sounds normal. Neck: Neck is supple and non tender. Extremities: LEFT LEG: limited straight leg raise, limited leg raise while knee in flexion and pt. in supine position. TTP at the insertion site of the left hamstring tendon [Skin:] [No rashes or lesions.] [ ] [DIFFERENTIAL DIAGNOSIS: After history and physical exam differential diagnosis was considered for] [ ] Medical Decision Making ED Course/Re-evaluation ED Course Unable to perform MSK US, b/c staff not trained. MRI machine at [facility] can not be done secondary to pt. with IVC filter. Patient states he has had multiple MRI's at other facilities, however. Dr. Brandon suggested CT to evaluet for complete tendon rupture. CT equivocal for partial vs. complete tendon rupture. ED staff called [facility], and scheduled the pt. for an appointment today to be evaluated for tendon rupture. KAITLYN wrap placed for stability/comfort. Decision to Disposition Date: Jan 16, 2019 Decision to Disposition Time: 16:00 Depart Departure Latest Vital Signs Vital Signs Date Time Temp Pulse Resp B/P (MAP) Pulse Ox O2 Delivery O2 Flow Rate FiO2 01/16/19 14:43 103/85 (91) 01/16/19 14:30 78 92 01/16/19 09:56 97.9 20 Room Air Impression: Primary Impression: Left proximal hamstring tendon rupture Condition: Improved Disposition: HOME OR SELF-CARE Patient Instructions: Hamstring Injury (ED) Problem Qualifiers Primary Impression: Left proximal hamstring tendon rupture Encounter type: initial encounter Qualified Codes: S76.312A - Strain of muscle, fascia and tendon of the posterior muscle group at thigh level, left thigh, initial encounter SUSAN ALFONSO MD Jan 16, 2019 10:05
[2019-01-16] MEDS ORDERED: NS(*) 0.9% 1000 ML BAG 1,000 ML IV ONE (10:40)
[2019-01-16] MEDS ORDERED: KETOROLAC 30 MG/ML VIAL IVP ONE (10:40)
--- NOTE | 2019-01-16 14:28 | RADIOLOGY IMAGING REPORT ---
FAC[place] [facility] [place] NAME: Tima Romero : 1955 MR: [id number] V: [id number] EXAM DATE: ORDERING PHYSICIAN: SUSAN AFLONSO TECHNOLOGIST: Location: [facility] Patient: Tima Romero : 1955 Visit/Account:[id number] Date of Sevice: 01/16/2019 EXAMINATION: CT pelvis without IV contrast HISTORY: Left buttock pain. Evaluate for proximal left hamstring rupture TECHNIQUE: Thin axial CT images of the bony pelvis were obtained without IV contrast, with coronal an d sagittal 2D reconstructed images. One of the following dose optimization techniques was utilized in the performance of this exam: Autom ated exposure control; adjustment of the mA and/or kV according to the patient's size; or use of an i terative reconstruction technique. Specific details can be referenced in the facility's radiology C T exam operational policy. COMPARISON: 02/23/2018. FINDINGS: Musculoskeletal: No evidence of acute fracture or dislocation in the bony pelvis. Normal alignment at both hips and sacroiliac joints. The musculotendinous structures of the pelvis are not well evaluated by noncontrast CT imaging. There is however asymmetric soft tissue thickening and a small amount of soft tissue hemorrhage in the reg ion of the left hamstring tendon origin and proximal muscle belly adjacent to the ischial tuberosity, compatible with a musculotendinous soft tissue injury. Chronic degenerative changes along the visualized lower lumbar spine. There is moderate disc space na rrowing at L4-L5 and severe disc space narrowing at L5-S1. Bowel and peritoneum: Visualized portions of the small bowel and colon are normal in caliber. No free fluid in the pelvis. Pelvic structures: Negative. Vessels: Mild vascular calcifications in the pelvis. Pelvic lymph node assessment: Negative. Abdominal wall: Negative. IMPRESSION: 1. No acute osseous findings in the bony pelvis. 2. There is asymmetric soft tissue thickening and a small amount of soft tissue hemorrhage in the reg ion of the left hamstring tendon origin and proximal muscle belly. Appearance is compatible with a mu sculotendinous injury. This however is poorly characterized by CT, and follow-up MRI is recommended f or further evaluation. This could represent a partial or full-thickness tear. Report Dictated By: Sigifredo Purcell MD at 01/16/2019 2:06 PM Report E-Signed By: Sigifredo Purcell MD at 01/16/2019 2:23 PM WSN:[id number]
[2019-01-16 14:43] VITALS: BP 103/85
== END 2019-01-16 15:14 | disposition home or self-care (01) ==
LOC: ER 10:08
DX: S76.312A Strain of muscle, fascia and tendon of the posterior muscle group at thigh level, left thigh, initial encounter (principal)
CPT/HCPCS: 72192; 96374; 99284; J1885; J7030